=== PATIENT | female | born 1940 | race Caucasian/White ===

== ENCOUNTER → 2017-01-18 | Outpatient (CLI) | payer OTHER, MEDICARE ==
[~2017-01-18] MED LIST: ADULT LOW DOSE81 MG PO; APAP500 PO; CALTRATE-600 W1 EACH PO; CENTRUM SILVER1 EAC1 PO; COUMADIN 5 MG TA5 M1 PO; IBUPROFEN 200200 M1 PO; IRON; LEVOTHROID100 MC1 PO; LISINOPRIL-HCT1 EAC1 PO; LISINOPRIL20 MG PO; MELOXICAM7.5 MG PO; NORCO 5-325 TA1 EACH PO; PERCOCET 10-321 EACH PO; SORINE 80 MG TA80 M1 PO
== END ==
LOC: NUC 08:55
DX: M81.0 Age-related osteoporosis without current pathological fracture (principal)

== ENCOUNTER → 2017-05-27 | Outpatient (CLI) | payer OTHER, MEDICARE ==
--- NOTE | ~2017-05-27 | 2DMMODE ---
[facility] [place] [address] 2 D/M-MODE ECHOCARDIOGRAM Name: CORNELLJANESSA Genaro Room #: REG [facility]#: [id number] Admission: 05/27/17 Attend Phys: Douglas Mejia Discharge: Date of : 36 Date of Service: 05/28/17 [facility] [place] Report #: [id number] THIS REPORT FOR: //name// APPROVED REPORT Study performed: 05/27/2017 13:11:30 EXAM: Comprehensive 2D, Doppler, and color-flow Echocardiogram Patient Location: Out-Patient Status: routine BSA: 1.96 HR: 84 bpm BP: 154/83 mmHg Rhythm: NSR Other Information Study Quality: Adequate Indications Afib, HTN 2D Dimensions RVDd: 40.51 mm LVEF(%): 63.27 (>50%) IVSd: 9.05 (7-11mm) LVOT Diam: 19.71 (18-24mm) LVDd: 41.92 mm PWd: 9.13 (7-11mm) Ascending Ao: 32.19 (22-36mm) LVDs: 27.68 (25-40mm) Aortic Root: 33.31 mm Maldonado's LVEF: 63.27 % Volumes Left Atrial Volume (Systole) Single Plane 4CH: 55.95 mL Single Plane 2CH: 58.29 mL LA ESV Index: 33.00 mL/m2 Aortic Valve AoV Peak Nicholas.: 1.55 m/s AO Peak Gr.: 9.59 mmHg LVOT Max P.13 mmHg LVOT Max V: 1.34 m/s CATERINA Vmax: 2.63 cm2 AI Vmax: 3.89 m/s AI Traill: 2.76 m/s2 AI PHT: 408.46 ms [facility] [address] [place] [address] 2 D/M-MODE ECHOCARDIOGRAM Name: JANESSA SARABIA Room #: [facility]#: [id number] Admission: 05/27/17 Attend Phys: Douglas Mejia Discharge: Date of : 36 Date of Service: 05/28/17 1300 Report #: [id number] Mitral Valve E/A Ratio: 1.2 MV Decel. Time: 166.26 ms MV E Max Nicholas.: 1.01 m/s MV A Nicholas.: 0.85 m/s MV PHT: 48.21 ms IVRT: 69.20 ms Pulmonary Valve PV Peak Nicholas.: 1.06 m/s PV Peak Gr.: 4.47 mmHg Pulmonary Vein P Vein S: 0.60 m/s P Vein A: 0.32 m/s P Vein D: 0.50 m/s P Vein A Dur.: 65.7 msec P Vein S/D Ratio: 1.20 Tricuspid Valve TR Peak Nicholas.: 2.79 m/s RAP Estimate: 5.00 mmHg TR Peak Gr.: 31.08 mmHg PA Pressure: 36.00 mmHg Left Ventricle The left ventricle is normal size. There is normal LV segmental wall motion. There is normal left ventricular wall thickness. The left ventricular systolic function is normal. LVEF is 60-65%. Moderate diastolic dysfunction is present (pseudonormal filling). Right Ventricle The right ventricle is normal size. The right ventricular systolic function is normal. Atria Left atrium is at the upper limits of normal. Right atrium is at the upper limits of normal. Aortic Valve The aortic valve is mildly sclerotic. Mild aortic regurgitation. There is no aortic valvular stenosis. Mitral Valve The mitral valve is normal in structure. Trace mitral regurgitation. Tricuspid Valve The tricuspid valve is normal in structure. Mild tricuspid regurgitation. Estimated PAP is 36[place]. [place] [address] 2 D/M-MODE ECHOCARDIOGRAM Name: JANESSA SARABIA Room #: REG [facility]#: [id number] Admission: 05/27/17 Attend Phys: Douglas Mejia Discharge: Date of : 36 Date of Service: 05/28/17 1300 Report #: [id number] Pulmonic Valve The pulmonary valve is normal in structure. Mild pulmonic regurgitation. Great Vessels The aortic root is normal in size. The ascending aorta is normal in size. IVC is normal in size and collapses >50% with inspiration. Pericardium There is no pericardial effusion. <Conclusion> The left ventricular systolic function is normal. There is normal LV segmental wall motion. LVEF is 60-65%. Moderate diastolic dysfunction The aortic valve is mildly sclerotic. Mild aortic regurgitation, no stenosis. The mitral valve is normal in structure. Trace mitral regurgitation. Pulmonary artery pressure of 36mmHg There is no pericardial effusion. <ELECTRONICALLY SIGNED> By: Titus Mcdonough MD, FACC 05/28/17 1300 1300 1300 Titus Mcdonough MD, FACC /INF
== END ==
LOC: CV 09:08
DX: I65.23 Occlusion and stenosis of bilateral carotid arteries (principal); I10 Essential (primary) hypertension; I35.1 Nonrheumatic aortic (valve) insufficiency; I48.92 Unspecified atrial flutter; I47.1 Supraventricular tachycardia

== ENCOUNTER → 2017-12-22 | Outpatient (CLI) | payer OTHER, MEDICARE | LOC: RAD 02:54 | DX: Z12.31 Encounter for screening mammogram for malignant neoplasm of breast (principal) ==

== ENCOUNTER → 2018-10-03 | Outpatient (CLI) | payer OTHER, MEDICARE | LOC: RAD 14:56 | DX: M79.604 Pain in right leg (principal); Z96.651 Presence of right artificial knee joint; Z88.8 Allergy status to other drugs, medicaments and biological substances; Z88.5 Allergy status to narcotic agent; Z88.2 Allergy status to sulfonamides; Z88.0 Allergy status to penicillin; Z88.7 Allergy status to serum and vaccine ==

== ENCOUNTER → 2018-12-20 | Outpatient (CLI) | payer OTHER, MEDICARE | LOC: RAD 00:22 | DX: Z12.31 Encounter for screening mammogram for malignant neoplasm of breast (principal) ==

== ENCOUNTER → 2019-07-25 | Outpatient (CLI) | payer OTHER, MEDICARE ==
--- NOTE | 2019-07-25 14:29 | 2DMMODE ---
[facility] [address] [place] [address] 2 D/M-MODE ECHOCARDIOGRAM Name: JANESSA SARABIA Room #: REG [facility]#: [id number] Admission: 07/25/19 Attend Phys: Douglas Mejia Discharge: Date of : 36 Report #: [id number] THIS REPORT FOR: //name// APPROVED REPORT Study performed: 07/25/2019 13:26:22 EXAM: Comprehensive 2D, Doppler, and color-flow Echocardiogram Patient Location: Out-Patient Status: routine BSA: 1.99 HR: 73 bpm BP: 156/80 mmHg Rhythm: NSR/PVCs Other Information Study Quality: Adequate Indications Atrial Fibrillation HX: HTN 2D Dimensions RVDd: 36.33 mm IVSd: 7.26 (7-11mm) LVOT Diam: 19.02 (18-24mm) LVDd: 55.62 mm PWd: 6.57 (7-11mm) Ascending Ao: 30.97 (22-36mm) LVDs: 28.20 (25-40mm) Aortic Root: 30.91 mm Volumes Left Atrial Volume (Systole) Single Plane 4CH: 56.24 mL Single Plane 2CH: 59.96 mL LA ESV Index: 31.00 mL/m2 Aortic Valve AoV Peak Nicholas.: 1.31 m/s AO Peak Gr.: 6.82 mmHg LVOT Max P.13 mmHg LVOT Max V: 1.13 m/s CATERINA Vmax: 2.46 cm2 Mitral Valve E/A Ratio: 1.4 MV Decel. Time: 183.82 ms [facility] [address] [place] [address] 2 D/M-MODE ECHOCARDIOGRAM Name: TIFFANIE SARABIANA Room #: REG [facility]#: [id number] Admission: 07/25/19 Attend Phys: Douglas Cruzuk healthcarennlaura Discharge: Date of : 36 Report #: [id number] MV E Max Nicholas.: 0.99 m/s MV A Nicholas.: 0.72 m/s MV PHT: 53.31 ms IVRT: 65.74 ms Pulmonary Valve PV Peak Nicholas.: 0.89 m/s PV Peak Gr.: 3.16 mmHg Pulmonary Vein P Vein S: 0.41 m/s P Vein A: 0.30 m/s P Vein D: 0.46 m/s P Vein A Dur.: 121.1 msec P Vein S/D Ratio: 0.89 Tricuspid Valve TR Peak Nicholas.: 2.88 m/s RAP Estimate: 5.00 mmHg TR Peak Gr.: 33.19 mmHg PA Pressure: 38.00 mmHg Left Ventricle The left ventricle is normal size. There is normal LV segmental wall motion. There is normal left ventricular wall thickness. Left ventricular systolic function is normal. LVEF is 55-60%. Moderate diastolic dysfunction is present (pseudonormal filling). Right Ventricle The right ventricle is normal size. The right ventricular systolic function is normal. Atria Left atrium is mildly dilated. Right atrium is mildly dilated. Aortic Valve The aortic valve is normal in structure. Leaflets mildly calcified. Mild aortic regurgitation. There is no aortic valvular stenosis. Mitral Valve The mitral valve is normal in structure. Mild to moderate mitral regurgitation. No evidence of mitral valve stenosis. Tricuspid Valve The tricuspid valve is normal in structure. Mild to moderate tricuspid regurgitation. Estimated PAP is 35-40mmHg. Pulmonic Valve [facility] [address] [place] [address] 2 D/M-MODE ECHOCARDIOGRAM Name: JANESSA SARABIA Room #: REG [facility].#: [id number] Admission: 07/25/19 Attend Phys: Douglas Cruzuk healthcaresally Discharge: Date of : 36 Report #: [id number] The pulmonary valve is normal in structure. Mild pulmonic regurgitation. Great Vessels The aortic root is normal in size. The ascending aorta is normal in size. IVC is normal in size and collapses >50% with inspiration. Pericardium There is no pericardial effusion. <Conclusion> The left ventricle is normal size. There is normal left ventricular wall thickness. Left ventricular systolic function is normal. Moderate diastolic dysfunction is present (pseudonormal filling). The right ventricle is normal size. Left atrium is mildly dilated. The aortic valve is normal in structure. Leaflets mildly calcified. Mild aortic regurgitation. Mild to moderate mitral regurgitation. Mild to moderate tricuspid regurgitation. Estimated PAP is 35-40mmHg. <ELECTRONICALLY SIGNED> By: Tito Olea MD 07/25/19 1428 27 142 Tito Olea MD /INF
== END ==
LOC: SJCVC 13:09 → CV 13:09
DX: I08.8 Other rheumatic multiple valve diseases (principal); I48.91 Unspecified atrial fibrillation; I47.1 Supraventricular tachycardia; I10 Essential (primary) hypertension; Z88.8 Allergy status to other drugs, medicaments and biological substances; Z88.0 Allergy status to penicillin; Z88.2 Allergy status to sulfonamides

== ENCOUNTER → 2020-01-22 | Outpatient (CLI) | payer OTHER, MEDICARE | LOC: BC 08:05 | PROVIDERS: ATTEND Nurse Practitioner | DX: Z12.31 Encounter for screening mammogram for malignant neoplasm of breast (principal) ==

== ENCOUNTER → 2020-01-30 | Outpatient (CLI) | payer OTHER, MEDICARE | LOC: ULTRA 13:26 | PROVIDERS: ATTEND Radiology Diagnostic Radiology | DX: N60.02 Solitary cyst of left breast (principal); N64.89 Other specified disorders of breast ==

== ENCOUNTER → 2020-07-29 | Outpatient (CLI) | payer OTHER, MEDICARE | LOC: SJCVC 14:00 | PROVIDERS: ATTEND Internal Medicine Cardiovascular Disease | DX: I47.1 Supraventricular tachycardia (principal); I48.92 Unspecified atrial flutter; I10 Essential (primary) hypertension; E78.5 Hyperlipidemia, unspecified; Z79.82 Long term (current) use of aspirin; Z79.899 Other long term (current) drug therapy; Z90.49 Acquired absence of other specified parts of digestive tract; Z96.659 Presence of unspecified artificial knee joint; Z82.49 Family history of ischemic heart disease and other diseases of the circulatory system ==

== ENCOUNTER → 2021-01-30 | Outpatient (CLI) | payer OTHER, MEDICARE | LOC: BC 10:32 | PROVIDERS: ATTEND Nurse Practitioner | DX: Z12.31 Encounter for screening mammogram for malignant neoplasm of breast (principal) ==

== ENCOUNTER 2021-07-07 17:37 | Emergency (ER) | payer OTHER, MEDICARE ==
[~2021-07-07] VITALS: Ht 162.6 cm; Wt 83.9 kg
[2021-07-07 19:26] LABS: URINE BILIRUBIN NEGATIVE (Negative); URINE BLOOD NEGATIVE (Negative); URINE CLARITY CLEAR; URINE COLOR YELLOW; URINE GLUCOSE-RANDOM* NEGATIVE (Negative); URINE KETONES NEGATIVE (Negative); URINE LEUKOCYTES-REFLEX NEGATIVE (Negative); URINE NITRITE-REFLEX NEGATIVE (Negative); URINE PROTEIN (DIPSTICK) NEGATIVE (Negative); URINE SPECIFIC GRAVITY 1.015 (1.005-1.035); URINE UROBILINOGEN 0.2 E.U./dl (0.2-1.0)
[2021-07-07 20:24] LABS: CREATININE 0.8 mg/dL (0.6-1.0); POTASSIUM 4.5 mmol/L (3.5-5.1)
[2021-07-07 20:34] LABS: ALBUMIN 3.7 g/dL (3.4-5.0); MAGNESIUM 1.7 mg/dL (1.8-2.4); TOTAL BILIRUBIN 0.6 mg/dL (0.2-1.0); TOTAL PROTEIN 7.1 g/dL (6.4-8.2)
[2021-07-07 20:40] LABS: ABSOLUTE NEUTROPHILS 8.7 thou/uL (1.4-8.2); BASOPHILS 0.9 % (0.0-2.0); HEMATOCRIT 40.5 % (37.0-47.0); HEMOGLOBIN 13.6 gm/dL (12.0-15.0); LYMPHOCYTES 8.9 % (24.0-44.0); MCH 32.5 pg (26.0-34.0); MCHC 33.5 g/dL (28.0-37.0); MONOCYTES 6.5 % (1.0-8.0); PLATELET COUNT 250 thou/uL (150-400); POLYS 82.7 % (36.0-66.0); RBC 4.18 mil/uL (4.20-5.00); RDW 14.1 % (10.5-14.5); WBC 10.6 thou/uL (4.0-11.0)
[2021-07-07 20:51] LABS: INR 0.95; PROTIME 10.4 Seconds (10.5-12.1)
[2021-07-07 22:32] VITALS: BP 143/89
--- NOTE | 2021-07-09 07:40 | EKG ---
[address] [address] ELECTROCARDIOGRAM REPORT Name: JANESSA SARABIA [id number] Admission: 07/07/21 Attend Phys: Discharge: 07/07/21 Date of : 36 Report #: [id number] [facility] ED Test Date: 2021-07-07 Test Time: 19:53:29 Pat Name: JANESSA SARABIA Department: Room: Gender: F Banking Assistant: jostin : 1940 Requested By: Maryanne Baum Order Number: [id number] MD: Berhane Curry Measurements Intervals Kirby Rate: 79 P: 23 RI: 153 QRS: 32 QRSD: 86 T: 23 QT: 416 QTc: 477 Interpretive Statements Sinus rhythm Borderline prolonged QT interval Compared to ECG 05/23/2010 07:34:25 No significant changes Electronically Signed On 07-09-2021 7:39:52 [employer]IVER MACHINE OPERATOR by Berhane Curry [email or web address] <ELECTRONICALLY SIGNED> By: Berhane Curry MD, [facility] 07/09/21 0739 52 52 Berhane Curry MD, FACC /EPI
== END 2021-07-07 22:34 | disposition short-term general hospital (02) ==
LOC: ER 17:37
PROVIDERS: Nurse Practitioner Family
DX: S02.92XA Unspecified fracture of facial bones, initial encounter for closed fracture (principal); T14.8XXA Other injury of unspecified body region, initial encounter; R55 Syncope and collapse; M25.561 Pain in right knee; I10 Essential (primary) hypertension; E03.9 Hypothyroidism, unspecified; M19.90 Unspecified osteoarthritis, unspecified site; Z90.710 Acquired absence of both cervix and uterus; Z90.49 Acquired absence of other specified parts of digestive tract; Z98.890 Other specified postprocedural states; Z79.899 Other long term (current) drug therapy; Z88.5 Allergy status to narcotic agent; Z88.0 Allergy status to penicillin; Z88.2 Allergy status to sulfonamides; X58.XXXA Exposure to other specified factors, initial encounter; Y93.89 Activity, other specified; Y92.89 Other specified places as the place of occurrence of the external cause; Y99.8 Other external cause status